=== PATIENT | female | born 1960 | race Caucasian/White ===

== ENCOUNTER → 2021-02-06 14:58 | Outpatient (CLI) | payer OTHER, SELFPAY ==
--- NOTE | 2021-02-06 15:06 | PET_ITS ---
EXAMINATION: FDG PET-CT INDICATIONS: A 60-year-old female with history of carcinoma of the right breast presenting for initial staging examination. COMPARISON EXAMINATION: None available INDEX LESION SIZE SUV INTERPRETATION Right breast 19.7-mm (frame 170) 1.0 Most consistent with site of histologically confirmed primary breast neoplasm TECHNIQUE: Following the intravenous administration of 13.0 mCi of F-18 deoxyglucose via the right upper extremity PICC line, multiplanar image acquisitions of the neck, chest, abdomen and pelvis to level of mid thigh, obtained at one hour post radiopharmaceutical administration contemporaneously interpreted with the current CT of the neck, chest, abdomen and pelvis, to level of mid thigh, dated 02/06/21 via coregistration reveals: BLOOD GLUCOSE LEVEL:?? 103 mg/dl?HEIGHT:?65 inches?WEIGHT: 202 lbs. FINDINGS: 1. Mild increased FDG distribution is asymmetrically apparent within the right breast generating a calculated maximal standard uptake value of 1.0. The maximal axial diameter of the asymmetric soft tissue density on review of CT of the chest dated 02/06/21 is 19.7-mm (AP). 2. Normal physiologic distribution of the radiopharmaceutical is apparent in the hepatic (3.4) and splenic parenchyma, both renal units, bladder and visualized intestinal tract. The visualized portion of the cerebral cortex demonstrate symmetric and preserved glucose metabolism. Diffuse radiopharmaceutical concentration is noted in all four quadrants of the abdomen and pelvis. Pertinent CT findings are as follows: CHEST: PICC line is identified. There is atherosclerotic calcification defined in the thoracic aorta without evidence of dilatation-aneurysm formation. Coronary arterial calcification is observed. Bilateral axillary soft tissue densities with fatty hilus are non-glucose avid. There are no parenchymal densities-nodules defined in the right and left hemithorax with discernible increased FDG uptake. The calcified subcentimeter density noted in the left mid posterior lung-left lower lobe is non-glucose avid. ABDOMEN AND PELVIS: The gallbladder is surgically absent. A paraumbilical hernia is defined with associated mesenteric fat and intestinal tract. Bilateral inguinal soft tissue densities with fatty hilus are ametabolic. Calcified granuloma formation is noted within the splenic parenchyma. SKELETAL: Degenerative changes are noted in the cervical, thoracic and lumbar spine without evidence of increased radiopharmaceutical concentration. There is no evidence of sclerotic, mixed sclerotic-lytic and/or lytic changes noted on review of the skeletal structures manifesting an increase in glucose metabolism. PET/PET/CT Tumor Base -Thigh Init IMPRESSION: 1. The increase in FDG distribution defined in the remaining right breast presumably is reimbursement representative of the site of the patient?s histologically confirmed primary breast malignancy. 2. No other quantitatively significant hypermetabolic abnormalities are noted. There is no definitive scintigraphic evidence of FDG-avid viable metastatic neoplastic disease. Electronic Signature Derian Stallings D.O. Accurate Quantification of SUVs for this report are calculated using the exclusive [employer]. ([place]. Patent No. [id number] [id number]). Standardization and correction of the FDG SUV metric via [employer] technology allow for vendor non-specific objective quantitative examination comparison and optimization of the sensitivity and specificity of the FDG PET-CT examination. Electronically Signed: Derian Stallings DO at 7:25 EDT Tel , Service support ,
== END ==
DX: C50.911 Malignant neoplasm of unspecified site of right female breast (principal)
CPT/HCPCS: 78815; A9552